=== PATIENT | female | born 1950 | race Caucasian/White ===

== ENCOUNTER 2017-11-20 07:53 | Outpatient (CLI) | payer MEDICARE, OTHER ==
[2017-11-20] MEDS ORDERED: ISOVUE-370 76%-LOCM 1 ML ONE (12:45)
== END 2017-11-20 07:54 | disposition home or self-care (01) ==
LOC: BICCT 07:53
PROVIDERS: ATTEND Internal Medicine Gastroenterology
DX: K52.9 Noninfective gastroenteritis and colitis, unspecified (principal)
CPT/HCPCS: 74177